=== PATIENT | female | born 1990 | race African-American/Black ===

== ENCOUNTER 2021-11-27 16:22 | Emergency (ER) | payer SELFPAY ==
[2021-11-27 16:29] VITALS: BP 152/102; PULSE 90; RESP 18; TEMP 36.7; O2SAT 100
[2021-11-27] MEDS: IBUPROFEN 400 MG TABLET PO (18:17)
[2021-11-27] MEDS: SODIUM CHLORIDE 0.9% IV 1,000 ML 999 ML IV CONT (18:20)
--- NOTE | 2021-11-27 18:23 | ED.ABDPAIN ---
HPI - Abdominal Pain General Chief Complaint: Abdominal Pain Stated Complaint: Abd pain Time Seen by Provider: 11/27/21 17:58 History of Present Illness HPI narrative: 31-year-old female presenting to the emergency department for evaluation of 2 weeks of lower abdominal pain for which she suspects is a urinary tract infection. Patient reports has had lower abdominal pain with associated dysuria for approximately past 2 weeks. Patient felt that his symptoms were worsening so she presented to emergency room for evaluation. Patient states she has also been experiencing generalized fatigue. Patient does have history of anemia and is concerned she may be anemic. Patient denies any bleeding and denies any vaginal discharge. Related Data Allergies Allergy/AdvReac Type Severity Reaction Status Date / Time No Known Allergies Allergy Verified 11/27/21 16:32 Review of Systems Review of Systems: CONSTITUTIONAL: Generalized fatigue EYES: Denies visual changes, redness, or discharge. ENT: Denies rhinorrhea, congestion, sore throat, or otalgia. CARDIOVASCULAR: Denies chest pain, palpitations, or edema. RESPIRATORY: Denies cough or dyspnea. GASTROINTESTINAL: Does report suprapubic abdominal pain GENITOURINARY: Reports burning with urination but denies any vaginal bleeding vaginal discharge SKIN: Denies rash or itching. MUSCULOSKELETAL: Denies back pain, joint pain, or myalgia. NEUROLOGIC: Denies headache, numbness, or weakness. PSYCHIATRIC: Denies anxiety or depression. Exam Narrative: APPEARANCE: Well appearing, no pain in distress, well-nourished. HEAD: normocephalic, atraumatic. NECK: Supple. No adenopathy, no masses. RESPIRATORY: Airway patent, respirations nonlabored. Clear to auscultation bilaterally, no rales, rhonchi, wheezing. CARDIOVASCULAR: Regular rate and rhythm without murmurs rubs or gallops. ABDOMINAL: Suprapubic tenderness to palpation. Normal bowel sounds. No guarding MUSCULOSKELETAL: Moves all extremities. Strength/ROM intact, No edema, No calf tenderness. NEURO: Alert. Cranial nerves II through XII intact. Good coordination SKIN: Warm, dry. Normal Color PSYCHIATRIC: Normal affect/mood. Vaginal: No cervical friability, no bleeding, white vaginal discharge and foul odor Course Course Emergency Course: UA was ordered to rule out urinary tract infection. CMP was ordered to check electrolytes and kidney function. CBC was ordered due to the patient reporting anemia and generalized fatigue. On reexamination patient did state that she is having vaginal discharge. Patient did consent to a pelvic exam. Patient initially said that she did not want to wait for the results. Patient was started on antibiotics for urinary tract infection. Patient was started on Flagyl for her trichomonas. Patient was clinically stable and well-appearing at time of discharge from the emergency room. Vital Signs Vital signs: Vital Signs Temperature 98.1 F 11/27/21 16:29 Pulse Rate 90 11/27/21 16:29 Respiratory Rate 18 11/27/21 16:29 Blood Pressure 152/102 H 11/27/21 16:29 Pulse Oximetry 100 11/27/21 16:29 Temperature 98.1 F 11/27/21 16:29 Pulse Rate 80 11/27/21 20:32 Respiratory Rate 16 11/27/21 20:32 Blood Pressure 122/78 11/27/21 20:32 Pulse Oximetry 100 11/27/21 20:32 MDM - Abdominal Pain Lab Data Attestation: I reviewed the patient's lab results. Result diagrams: 11/27/21 18:25 11/27/21 18:25 Labs: Lab Results 11/27/21 11/27/21 11/27/21 Range/Units 18:25 18:25 18:25 WBC 8.7 (4.5-10.0) K/mm3 RBC 4.64 (4.2-5.4) M/mm3 Hgb 10.7 L (12.0-15.0) g/dL Hct 35.0 L (37.0-47.0) % MCV 75.4 L (80-100) fl MCH 23.1 L (26-34) pg MCHC 30.6 L (32-36) g/dl RDW 14.4 (11.5-14.5) % Plt Count 210 (150-375) k/mm3 MPV 12.5 H (7.4-10.4) fl Immature Gran % (Auto) 0.2 (0-0.5) % Neut % (Auto) 71.2 (45.5-73.1) % Lymph % (Auto) 21
[2021-11-27 18:38] LABS: Basophils Percent Auto 0.1 % (0.2-1.2); Eosinophils Absolute Auto 0.1 K/mm3 (0-0.3); Eosinophils Percent Auto 0.9 % (0-4.4); Hemoglobin 10.7 g/dL (12.0-15.0); Immature Granulocyte Absolute 0.02 K/mm3 (0.00-0.031); Immature Granulocyte Percent A 0.2 % (0-0.5); Lymphocytes Absolute Auto 1.86 K/mm3 (0.9-3.2); Lymphocytes Percent Auto 21.3 % (18.3-44.2); Mean Corpuscular HGB Conc 30.6 g/dl (32-36); Mean Corpuscular Hemoglobin 23.1 pg (26-34); Mean Corpuscular Volume 75.4 fl (80-100); Mean Platelet Volume 12.5 fl (7.4-10.4); Monocytes Absolute Auto 0.6 K/mm3 (0.1-0.6); Monocytes Percent Auto 6.3 % (2.6-8.5); Neutrophils Absolute Auto 6.2 K/mm3 (1.3-6.7); Neutrophils Percent Auto 71.2 % (45.5-73.1); Platelet Count Result 210 k/mm3 (150-375); Red Blood Count 4.64 M/mm3 (4.2-5.4); Red Cell Distribution Width 14.4 % (11.5-14.5); White Blood Count 8.7 K/mm3 (4.5-10.0)
[2021-11-27 18:45] LABS: Add Urine Microscopic? YES; Appearance Urine Cloudy (Clear); Bacteria Urine Trace /hpf; Bilirubin Urine Negative (Negative); Blood Urine Negative (Negative); Color Urine Yellow (Yellow); Glucose Urine UA Negative (Negative); Ketones Urine Negative (Negative); Leukocyte Esterase Ur 1+ LEU/UL (Negative); Mucus Urine Rare /lpf; Nitrate Urine Negative (Negative); Protein Urine Negative (Negative); Specific Grav Ur 1.012 (1.001-1.035); Squamous Epithelial Cell Urine Many /hpf (Few); Urobilinogen Urine Negative mg/dL (<2.0)
[2021-11-27 18:48] LABS: Alanine Aminotransferase 14 U/L (4-35); Albumin Level 4.3 g/dL (3.5-5.1); Alkaline Phosphatase 75 U/L (38-126); Anion Gap 8 mmol/L (8-16); Aspartate Amino Transferase 19 U/L (14-36); Bilirubin,Total 0.8 mg/dL (0.2-1.3); Blood Urea Nitrogen 11 mg/dL (7-17); Calcium 9.3 mg/dL (8.4-10.2); Carbon Dioxide 26 mmol/L (22-30); Chloride 103 mmol/L (98-107); Estimated CRCL calculation 81 ml/min; Estimated Glomerular Filt Rate > 60; Glucose 88 mg/dL (65-110); Potassium 3.7 mmol/L (3.4-5.0); Sodium 137 mmol/L (137-145)
[2021-11-27] MEDS: PHENAZOPYRIDINE HCL 100 MG TABLET PO (18:58)
[2021-11-27] MEDS: NITROFURANTOIN MONOHYD MACROCR 100 MG CAP PO (18:58)
--- NOTE | 2021-11-27 19:04 | PC.NURSE ---
pt inquiring about her std testing results. pt made aware that she was not tested for this.
[2021-11-27 20:32] VITALS: BP 122/78; PULSE 80; RESP 16; O2SAT 100
--- NOTE | 2021-12-19 10:02 | PC.NURSE ---
LATE ENTRY This note is being entered to document information to the patient's record. The following information was omitted on [11/27/21], by [Urmila Fam RN]. NS stop time is 1914.
== END 2021-11-27 20:33 | disposition home or self-care (01) ==
PROVIDERS: Emergency Provider Emergency Medicine
DX: N30.01 Acute cystitis with hematuria (principal); A59.01 Trichomonal vulvovaginitis; D64.9 Anemia, unspecified
CPT/HCPCS: 36415; 80053; 81001; 85025; 87070; 87086; 87088; 87491; 87591; 87808; 96360; 99284; A9270; J7030